=== PATIENT | female | born 1975 | race Caucasian/White ===

== ENCOUNTER 2017-10-05 21:35 | Emergency (ER) | payer MEDICAID ==
[~2017-10-05] VITALS: Ht 152.4 cm; Wt 64.4 kg
[~2017-10-05 21:35] MED LIST: METF500T4 PO; METFORMIN PO; METH250T PO
[2017-10-05 23:38] LABS: MICROSCOPIC AUTO
[2017-10-05] MEDS ORDERED: HYDROcodone/APAP 5/325 TABLET ONE (23:40)
[2017-10-05 23:48] VITALS: BP 132/78
[2017-10-06] MEDS ORDERED: HYDROcodone/APAP 5/325 TABLET PO ONE
[2017-10-06 00:49] LABS: MICROSCOPIC AUTO
[2017-10-06 00:52] LABS: CULTURE INDICATED? YES
== END 2017-10-06 01:24 | disposition home or self-care (01) ==
LOC: ED 10-06 00:36
DX: N20.2 Calculus of kidney with calculus of ureter (principal); N13.2 Hydronephrosis with renal and ureteral calculous obstruction; E11.9 Type 2 diabetes mellitus without complications; Z87.442 Personal history of urinary calculi
CPT/HCPCS: 74176; 81001; 87086; 99285

== ENCOUNTER 2017-10-08 12:14 | Day surgery (SDC) | payer MEDICAID ==
[~2017-10-08] VITALS: Ht 152.4 cm; Wt 64.5 kg
[2017-10-08] MEDS ORDERED: LACTATED RINGERS 1,000 ML IV SCH (12:44)
[2017-10-08] MEDS ORDERED: glimepiride PO (13:12)
[2017-10-08 13:16] VITALS: BP 146/93
[2017-10-08] MEDS ORDERED: METF1000 PO (13:16)
[2017-10-08] MEDS ORDERED: HYDR-3237 PO (13:16)
[2017-10-08] MEDS ORDERED: LOSA25TA5 PO (13:16)
[2017-10-08] MEDS ORDERED: FENTANYL PF 100 MCG/2ML ONE (14:01)
[2017-10-08] MEDS ORDERED: MIDAZOLAM 1 MG/ML, 2ML ONE (14:01)
[2017-10-08 14:10] LABS: ALANINE AMINOTRANSFERASE 29 U/L (12-78); ALBUMIN 3.8 g/dL (3.4-5.0); ANION GAP 9 mmol/L (5-15); CALCIUM 8.5 mg/dL (8.5-10.1); CHLORIDE 108 mmol/L (98-107); CREATININE 0.48 mg/dL (0.55-1.02)
[2017-10-08 14:12] LABS: ALKALINE PHOSPHATASE 77 U/L (45-117); BILIRUBIN,TOTAL 0.5 mg/dL (0.2-1.0); TOTAL PROTEIN 7.6 g/dL (6.4-8.2)
[2017-10-08] MEDS ORDERED: LIDOCAINE-MPF 2% ,5ML ONE (14:15)
[2017-10-08] MEDS ORDERED: ONDANSETRON 2MG/ML, 2ML ONE (14:15)
[2017-10-08] MEDS ORDERED: PHENYLEPHRINE 10 MG/ML ONE (14:15)
[2017-10-08] MEDS ORDERED: PROPOFOL 10 MG/ML, 20ML ONE (14:15)
[2017-10-08] MEDS ORDERED: CEFAZOLIN 1,000 MG ONE (14:15)
[2017-10-08] MEDS ORDERED: DEXAMETHASONE 4 MG/ML, 5ML ONE (14:15)
[2017-10-08] MEDS ORDERED: ONDANSETRON 2MG/ML, 2ML IVPush PRN (15:00)
[2017-10-08] MEDS ORDERED: PROMETHAZINE 12.5 MG SUPP PR PRN (15:00)
[2017-10-08] MEDS ORDERED: MIDAZOLAM 1 MG/ML, 2ML IV PRN (15:00)
[2017-10-08] MEDS ORDERED: ALBUTEROL/IPRATROPIUM 2.5MG/0.5MG, 3 ML NPPB PRN (15:00)
[2017-10-08] MEDS ORDERED: OXYcodone 5 MG/5 ML ORAL.SOL UDC PO PRN (15:00)
[2017-10-08] MEDS ORDERED: hydrALAzine 20 MG/ML, 1ML IV PRN (15:00)
[2017-10-08] MEDS ORDERED: DIAZEPAM 5 MG/ML, 2ML IVPush PRN (15:00)
[2017-10-08] MEDS ORDERED: HYDROmorphone 1 MG/ML, 1ML IV PRN (15:00)
[2017-10-08] MEDS ORDERED: LABETALOL 5MG/ML, 20ML IV PRN (15:00)
[2017-10-08] MEDS ORDERED: ACETAMINOPHEN 325 MG TABLET PO PRN (15:00)
[2017-10-08] MEDS ORDERED: MEPERIDINE/PF 25MG/0.5ML IVPush PRN (15:00)
[2017-10-08] MEDS ORDERED: EPHEDRINE 50 MG/ML, 1ML ONE (15:10)
[2017-10-08] MEDS: FENTANYL PF 100 MCG/2ML IV PRN ×3 (16:28→16:38)
[2017-10-08] MEDS ORDERED: OMNIPAQUE 350 MG/ML, 50 ML BOTTLE ONE (16:56)
[2017-10-08] MEDS ORDERED: TAMSULOSIN 0.4 MG CAP.ER.24H PO ONE (18:30)
[2017-10-08] MEDS ORDERED: PHENAZOPYRIDINE 100 MG TABLET PO ONE (18:30)
== END 2017-10-08 18:32 | disposition home or self-care (01) ==
LOC: OUT 12:14
PROVIDERS: ATTEND Student in an Organized Health Care Education/Training Program
DX: N13.2 Hydronephrosis with renal and ureteral calculous obstruction (principal); I10 Essential (primary) hypertension
CPT/HCPCS: 36415; 52356; 74420; 80053; 82962; 88300; J0690; J1100; J2250; J2370; J2405; J2704; J3010; J3490; J7120; Q9967; 82360; C1758; C2617

== ENCOUNTER 2019-08-29 06:31 | Emergency (ER) | payer MEDICAID ==
[~2019-08-29] VITALS: Ht 152.4 cm; Wt 63.7 kg
[~2019-08-29 06:31] MED LIST changes: +HYDR-3237 PO; +LOSA25TA25 PO; +METF1000 PO; +METF500T17 PO; -METF500T4 PO; -METH250T PO; +METH250T3 PO; +glimepiride PO
[2019-08-29 06:32] VITALS: BP 194/106
--- NOTE | 2019-08-29 06:49 | NUR ---
Patient reports after dinner last night developing a 10/10 head pain with a bit of numbness and tingleing of the left side of her face.
[2019-08-29] MEDS ORDERED: PROCHLORPERAZINE 5 MG/ML, 2ML IVPush ONE (07:00)
[2019-08-29] MEDS ORDERED: SODIUM CHLORIDE FLUSH 10ML SYR IVF ONE (07:00)
[2019-08-29] MEDS ORDERED: DIPHENHYDRAMINE 50 MG/ML, 1ML IVPush ONE (07:00)
--- NOTE | 2019-08-29 07:00 | NUR ---
i am assuming care of this pt from elkin (yazan) at this time. sbar was exchanged at the bedside.
[2019-08-29] MEDS ORDERED: DIPHENHYDRAMINE 50 MG/ML, 1ML ONE (07:12)
[2019-08-29] MEDS ORDERED: PROCHLORPERAZINE 5 MG/ML, 2ML ONE (07:12)
[2019-08-29 07:16] LABS: BASOPHILS # (AUTO) 0.04 x10^3/uL (0-0.1); BASOPHILS % (AUTO) 1 % (0-1); EOSINOPHILS # (AUTO) 0.09 x10^3/uL (0-0.4); EOSINOPHILS % (AUTO) 1 % (1-7); LYMPHOCYTES # (AUTO) 2.33 x10^3/uL (1-3.4); LYMPHOCYTES % (AUTO) 34 % (22-44); MD NO; MEAN CORPUSCULAR HEMOGLOBIN 29.9 pg (27.0-34.8); MEAN CORPUSCULAR HGB CONC 33.7 g/dL (32.4-35.8); MEAN CORPUSCULAR VOLUME 88.8 fL (80-100); MEAN PLATELET VOLUME 8.5 fL (7.4-10.4); MONOCYTES # (AUTO) 0.47 x10^3/uL (0.2-0.8); MONOCYTES % (AUTO) 7 % (2-9); NEUTROPHILS # (AUTO) 3.87 x10^3/uL (1.8-6.8); NEUTROPHILS % (AUTO) 57 % (42-75); PLATELET COUNT 336 x10^3/uL (130-400); RED BLOOD COUNT 4.66 x10^6/uL (3.82-5.3); RED CELL DISTRIBUTION WIDTH 13.1 % (9.6-15.2)
--- NOTE | 2019-08-29 07:19 | NUR ---
pt to ct w tech
[2019-08-29 07:26] LABS: ALBUMIN 3.5 g/dL (3.4-5.0); ANION GAP 9 mmol/L (5-15); CALCIUM 8.2 mg/dL (8.5-10.1); CHLORIDE 104 mmol/L (98-107); CREATININE 0.66 mg/dL (0.55-1.02)
--- NOTE | 2019-08-29 07:49 | NUR ---
luis is at the bedside for recheck.
[2019-08-29] MEDS ORDERED: KETOROLAC 30 MG/1 ML ONE (08:00)
[2019-08-29] MEDS ORDERED: KETOROLAC 30 MG/1 ML IVPush ONE (08:00)
== END 2019-08-29 09:12 | disposition home or self-care (01) ==
LOC: ED 06:53
DX: G43.119 Migraine with aura, intractable, without status migrainosus (principal); E11.9 Type 2 diabetes mellitus without complications
CPT/HCPCS: 36415; 70450; 80048; 82040; 85025; 93005; 96374; 96375; 99284; J0780; J1200; J1885